=== PATIENT | male | born 1935 | race Caucasian/White ===

== ENCOUNTER → 2018-05-04 | Outpatient (CLI) | payer MEDICARE | END | disposition home or self-care (01) | LOC: OIH 15:35 | PROVIDERS: ATTEND Internal Medicine | DX: M06.842 Other specified rheumatoid arthritis, left hand (principal); M06.841 Other specified rheumatoid arthritis, right hand; J44.9 Chronic obstructive pulmonary disease, unspecified | CPT/HCPCS: 73130 ==

== ENCOUNTER → 2019-05-01 | Outpatient (CLI) | payer MEDICARE | END | disposition home or self-care (01) | LOC: RAH 11:13 | PROVIDERS: ATTEND Family Medicine | DX: M47.814 Spondylosis without myelopathy or radiculopathy, thoracic region (principal); M85.88 Other specified disorders of bone density and structure, other site; M41.84 Other forms of scoliosis, thoracic region | CPT/HCPCS: 72070 ==

== ENCOUNTER 2021-04-17 16:05 | Emergency (ER) | payer MEDICARE ==
[~2021-04-17] VITALS: Ht 177.8 cm; Wt 80.7 kg
[2021-04-17 16:07] VITALS: BP 164/88
[2021-04-17 17:36] LABS: APPEARANCE,URINE Clear (CLEAR); BILIRUBIN,URINE Negative (NEGATIVE); COLOR,URINE Yellow (YELLOW); GLUCOSE, URINE (UA) Negative (NEGATIVE); KETONES,URINE Trace mg/dL (NEGATIVE); LEUKOCYTE ESTERASE ,URINE Negative (NEGATIVE); NITRATE,URINE Negative (NEGATIVE); OCCULT BLOOD,URINE Negative (NEGATIVE); PROTEIN,URINE Negative (NEGATIVE)
[2021-04-17 18:20] VITALS: BP 148/82
== END 2021-04-17 19:15 | disposition home or self-care (01) ==
LOC: EDH 16:05
DX: S01.01XA Laceration without foreign body of scalp, initial encounter (principal); W18.39XA Other fall on same level, initial encounter; Y93.89 Activity, other specified; Y92.89 Other specified places as the place of occurrence of the external cause; Y99.8 Other external cause status
CPT/HCPCS: 12002; 36415; 70450; 71045; 72125; 81003

== ENCOUNTER → 2021-07-28 | Outpatient (CLI) | payer MEDICARE, OTHER ==
[~2021-07-28] MED LIST: REGADENOSON 0.4 MG/5 ML PF SYG IVP SCH
== END | disposition home or self-care (01) ==
LOC: OIH 08:32
PROVIDERS: ATTEND Internal Medicine Cardiovascular Disease
DX: R06.09 Other forms of dyspnea (principal); I10 Essential (primary) hypertension; E78.5 Hyperlipidemia, unspecified; E21.3 Hyperparathyroidism, unspecified; E79.0 Hyperuricemia without signs of inflammatory arthritis and tophaceous disease; R94.39 Abnormal result of other cardiovascular function study; I25.10 Atherosclerotic heart disease of native coronary artery without angina pectoris
CPT/HCPCS: 78452; 93017; 96374; A9500 ×2; J2785

== ENCOUNTER → 2022-06-25 | Outpatient (CLI) | payer MEDICARE, OTHER ==
[~2022-06-25] MED LIST changes: +GADOTERATE MEGLUMINE 10 MMOL/20 ML VIAL IV ONE; -REGADENOSON 0.4 MG/5 ML PF SYG IVP SCH
== END | disposition home or self-care (01) ==
LOC: RAH 09:15
PROVIDERS: ATTEND Otolaryngology Plastic Surgery within the Head & Neck
DX: H90.3 Sensorineural hearing loss, bilateral (principal)
CPT/HCPCS: 70553; A9575

== ENCOUNTER 2022-12-10 10:30 | Inpatient (IN) | payer MEDICARE, OTHER ==
[~2022-12-10] VITALS: Ht 167.6 cm; Wt 70.3 kg
[2022-12-10 10:56] LABS: BASOPHILS % (AUTO) 0.3 % (0.0-5.0); HEMATOCRIT 45.4 % (42-54); LYMPHOCYTES % (AUTO) 5.9 % (21.0-51.0); MEAN CORPUSCULAR HEMOGLOBIN 27.1 pg (27.0-33.0); MEAN CORPUSCULAR HGB CONC 31.1 g/dL (32.0-36.0); MEAN CORPUSCULAR VOLUME 87.3 fL (79-99); MONOCYTES % (AUTO) 6.3 % (3.0-13.0); NEUTROPHILS % (AUTO) 86.4 % (40.0-77.0); PLATELET COUNT (AUTO) 366 K/uL (130-400); RED CELL DISTRIBUTION WIDTH 15.8 % (11.0-15.5); WHITE BLOOD COUNT (AUTO) 21.8 K/uL (4.8-10.8)
[2022-12-10] MEDS ORDERED: ZOSYN 3.375GM +NS 50ML IVPB SCH (11:30)
[2022-12-10 11:31] LABS: ALBUMIN 2.6 g/dL (3.5-5.0); POTASSIUM 3.9 mmol/L (3.5-5.1); TOTAL PROTEIN, SERUM 6.1 g/dL (6.0-8.3)
[2022-12-10 11:45] LABS: APPEARANCE,URINE CLEAR (CLEAR); BILIRUBIN,URINE NEGATIVE (NEGATIVE); COLOR,URINE YELLOW (YELLOW); GLUCOSE, URINE (UA) NEGATIVE (NEGATIVE); KETONES,URINE NEGATIVE (NEGATIVE); LEUKOCYTE ESTERASE ,URINE 75 Leu/uL (NEGATIVE); NITRATE,URINE NEGATIVE (NEGATIVE); OCCULT BLOOD,URINE NEGATIVE (NEGATIVE); PH,URINE 5.5 (5.0-8.0); PROTEIN,URINE 30 mg/dL (NEGATIVE); UROBILINOGEN,URINE 3 mg/dL (0.2-1.0)
[2022-12-10 11:51] LABS: BACTERIA,URINE RARE /HPF (None Seen); SQUAMOUS EPITHELIAL CELL,UR RARE /HPF (0-2)
[2022-12-10] MEDS ORDERED: ZOSYN 3.375GM+NS 50ML 50 ML IVPB SCH (12:00)
[2022-12-10] MEDS ORDERED: IOHEXOL 350 MG/ML 100ML INFUS..BTL IV ONE (12:11)
[2022-12-10] MEDS ORDERED: 0.9%NACL 1000ML 1,000 ML IV SCH ×2 (12:30)
[2022-12-10] MEDS ORDERED: GUAIFENESIN-DM 200/20 MG 10 ML PO PRN (14:00)
[2022-12-10] MEDS ORDERED: DiphenhydrAMINE HCL 50 MG/ML VIAL IV PRN (14:00)
[2022-12-10] MEDS ORDERED: NITROGLYCERIN 0.4 MG SL TAB SL PRN (14:00)
[2022-12-10] MEDS ORDERED: ACETAMINOPHEN 325 MG TAB PO PRN (14:00)
[2022-12-10] MEDS ORDERED: MORPHINE 2 MG SYG IV PRN (14:00)
[2022-12-10] MEDS ORDERED: DEXTROSE 50%-WATER 50 ML DISP.SYRIN IV PRN (14:00)
[2022-12-10] MEDS ORDERED: ALBUTEROL 0.083% 2.5 MG/3 ML INH IH PRN (14:00)
[2022-12-10] MEDS ORDERED: POTASSIUM CHLORIDE 20MEQ/100ML 100 ML IV PRN ×2 (14:00)
[2022-12-10] MEDS ORDERED: LACTULOSE 20 GM/30 ML UDCUP PO PRN (14:00)
[2022-12-10] MEDS ORDERED: ONDANSETRON 4MG INJ IV PRN (14:00)
[2022-12-10] MEDS ORDERED: GLUCAGON 1MG KIT 1 MG ML IM PRN (14:00)
[2022-12-10] MEDS: LACTATED RINGERS 1000ML 1,000 ML IV SCH (14:47)
[2022-12-10] MEDS ORDERED: HYDROMORPHONE 0.5 MG SYG (0.5MG/0.5ML) IV PRN (15:30)
[2022-12-10 16:15] VITALS: BP 140/58
[2022-12-10] MEDS: INSULIN HUMULIN R 100 UNIT/ML 3ML SQ SCH ×2 (16:30→20:16)
[2022-12-10] MEDS ORDERED: PRED1 PO (18:53)
[2022-12-10] MEDS ORDERED: ALLO300T2 PO (18:53)
[2022-12-10] MEDS ORDERED: ATEN50TA PO (18:53)
[2022-12-10 20:00] VITALS: BP 140/70
[2022-12-10] MEDS ORDERED: HYDRALAZINE 20MG/ML VIAL IV PRN (20:00)
[2022-12-10] MEDS: ZOSYN 3.375GM+NS 50ML 50 ML IVPB SCH (20:38)
[2022-12-10] MEDS: FAMOTIDINE 20MG VIAL IV SCH (20:38)
[2022-12-11] VITALS: BP 144/74
[2022-12-11] MEDS: LACTATED RINGERS 1000ML 1,000 ML IV SCH ×3 (03:03→21:09)
[2022-12-11 04:00] VITALS: BP 142/72
[2022-12-11] MEDS: ZOSYN 3.375GM+NS 50ML 50 ML IVPB SCH ×3 (04:05→21:06)
[2022-12-11] MEDS ORDERED: ISOS30TA92 PO (04:09)
[2022-12-11] MEDS ORDERED: SIMV5TAB58 PO (04:09)
[2022-12-11] MEDS: INSULIN HUMULIN R 100 UNIT/ML 3ML SQ SCH ×4 (05:44→20:15)
[2022-12-11 06:02] LABS: BASOPHILS % (AUTO) 0.4 % (0.0-5.0); EOSINOPHILS % (AUTO) 0.6 % (0.0-8.0); HEMATOCRIT 37.6 % (42-54); MEAN CORPUSCULAR HEMOGLOBIN 27.5 pg (27.0-33.0); MEAN CORPUSCULAR HGB CONC 31.9 g/dL (32.0-36.0); NEUTROPHILS % (AUTO) 80.9 % (40.0-77.0); PLATELET COUNT (AUTO) 289 K/uL (130-400); RED BLOOD CELL COUNT(AUTO) 4.37 MIL/uL (4.50-6.20); RED CELL DISTRIBUTION WIDTH 15.7 % (11.0-15.5); WHITE BLOOD COUNT (AUTO) 14.2 K/uL (4.8-10.8)
[2022-12-11 06:30] LABS: CREATININE 0.9 mg/dL (0.5-1.5); POTASSIUM 3.3 mmol/L (3.5-5.1)
[2022-12-11] MEDS: POTASSIUM CHLORIDE 10% ELIXIR 20 MEQ/15 ML UDCUP PO PRN ×3 (06:39→14:09)
[2022-12-11 08:00] VITALS: BP 139/71
[2022-12-11] MEDS: ENOXAPARIN SODIUM 40 MG/0.4 ML SYRINGE SQ SCH ×2 (09:00→09:17)
[2022-12-11] MEDS: ALLOPURINOL 300 MG TABLET PO SCH ×2 (09:00→09:16)
[2022-12-11] MEDS: PREDNISONE 1 MG TAB PO SCH (09:15)
[2022-12-11] MEDS: ISOSORBIDE MONO 30MG SR TAB PO SCH (09:16)
[2022-12-11] MEDS: ATENOLOL 50 MG TABLET PO SCH (09:16)
[2022-12-11 12:00] VITALS: BP 145/74
[2022-12-11 16:00] VITALS: BP 133/53
[2022-12-11 20:00] VITALS: BP 122/55
[2022-12-11] MEDS: FAMOTIDINE 20MG VIAL IV SCH (21:06)
[2022-12-11] MEDS: SIMVASTATIN 10 MG TABLET PO SCH (21:09)
[2022-12-12] VITALS: BP 146/60
[2022-12-12 04:00] VITALS: BP 133/72
[2022-12-12] MEDS: ZOSYN 3.375GM+NS 50ML 50 ML IVPB SCH ×3 (04:32→23:11)
[2022-12-12 05:07] LABS: BASOPHILS % (AUTO) 0.3 % (0.0-5.0); EOSINOPHILS % (AUTO) 0.7 % (0.0-8.0); HEMATOCRIT 38.7 % (42-54); LYMPHOCYTES % (AUTO) 11.1 % (21.0-51.0); MEAN CORPUSCULAR HEMOGLOBIN 27.1 pg (27.0-33.0); MEAN CORPUSCULAR HGB CONC 31.3 g/dL (32.0-36.0); MEAN CORPUSCULAR VOLUME 86.8 fL (79-99); MONOCYTES % (AUTO) 6.4 % (3.0-13.0); NEUTROPHILS % (AUTO) 80.7 % (40.0-77.0); PLATELET COUNT (AUTO) 303 K/uL (130-400); RED BLOOD CELL COUNT(AUTO) 4.46 MIL/uL (4.50-6.20); RED CELL DISTRIBUTION WIDTH 15.6 % (11.0-15.5); WHITE BLOOD COUNT (AUTO) 17.9 K/uL (4.8-10.8)
[2022-12-12 05:27] LABS: ALBUMIN 2.1 g/dL (3.5-5.0); MAGNESIUM 1.5 mg/dL (1.80-2.40); POTASSIUM 3.7 mmol/L (3.5-5.1); TOTAL PROTEIN, SERUM 5.9 g/dL (6.0-8.3)
[2022-12-12] MEDS: LACTATED RINGERS 1000ML 1,000 ML IV SCH ×2 (06:00→16:21)
[2022-12-12] MEDS: INSULIN HUMULIN R 100 UNIT/ML 3ML SQ SCH ×4 (06:04→20:53)
[2022-12-12] MEDS: POTASSIUM CHLORIDE 10% ELIXIR 20 MEQ/15 ML UDCUP PO PRN ×2 (06:27→08:40)
[2022-12-12] MEDS: MAGNESIUM 2GM PREMIX 50ML 50 ML IV PRN (06:28)
[2022-12-12 08:00] VITALS: BP 133/71
[2022-12-12] MEDS: ALLOPURINOL 300 MG TABLET PO SCH (08:39)
[2022-12-12] MEDS: PREDNISONE 1 MG TAB PO SCH (08:40)
[2022-12-12] MEDS: ATENOLOL 50 MG TABLET PO SCH (08:40)
[2022-12-12] MEDS: ISOSORBIDE MONO 30MG SR TAB PO SCH (08:44)
[2022-12-12] MEDS: ENOXAPARIN SODIUM 40 MG/0.4 ML SYRINGE SQ SCH (08:44)
[2022-12-12 12:00] VITALS: BP 128/81
[2022-12-12 16:00] VITALS: BP 136/63
[2022-12-12 20:00] VITALS: BP 158/67
[2022-12-12] MEDS: FAMOTIDINE 20MG VIAL IV SCH (21:02)
[2022-12-12] MEDS: SIMVASTATIN 10 MG TABLET PO SCH (21:03)
[2022-12-13] VITALS: BP 160/72
[2022-12-13] MEDS: LACTATED RINGERS 1000ML 1,000 ML IV SCH (02:00)
[2022-12-13 04:00] VITALS: BP 158/72
[2022-12-13 04:30] LABS: BASOPHILS % (AUTO) 0.3 % (0.0-5.0); EOSINOPHILS % (AUTO) 1.6 % (0.0-8.0); HEMATOCRIT 33.4 % (42-54); MEAN CORPUSCULAR HEMOGLOBIN 26.5 pg (27.0-33.0); MEAN CORPUSCULAR HGB CONC 31.1 g/dL (32.0-36.0); MEAN CORPUSCULAR VOLUME 85.2 fL (79-99); MONOCYTES % (AUTO) 7.1 % (3.0-13.0); PLATELET COUNT (AUTO) 282 K/uL (130-400); RED BLOOD CELL COUNT(AUTO) 3.92 MIL/uL (4.50-6.20); RED CELL DISTRIBUTION WIDTH 15.9 % (11.0-15.5); WHITE BLOOD COUNT (AUTO) 9.9 K/uL (4.8-10.8)
[2022-12-13 04:43] LABS: ALBUMIN 1.8 g/dL (3.5-5.0); CREATININE 0.9 mg/dL (0.5-1.5); MAGNESIUM 1.6 mg/dL (1.80-2.40); POTASSIUM 3.5 mmol/L (3.5-5.1); TOTAL PROTEIN, SERUM 4.9 g/dL (6.0-8.3)
[2022-12-13] MEDS: KCL 20 MEQ ERTAB PO PRN ×2 (06:18→13:45)
[2022-12-13] MEDS: MAGNESIUM 2GM PREMIX 50ML 50 ML IV PRN (06:18)
[2022-12-13] MEDS: INSULIN HUMULIN R 100 UNIT/ML 3ML SQ SCH ×2 (06:35→11:30)
[2022-12-13] MEDS: POTASSIUM CHLORIDE 10% ELIXIR 20 MEQ/15 ML UDCUP PO PRN (07:37)
[2022-12-13] MEDS: ZOSYN 3.375GM+NS 50ML 50 ML IVPB SCH ×2 (07:37→12:05)
[2022-12-13] MEDS: ATENOLOL 50 MG TABLET PO SCH (08:16)
[2022-12-13] MEDS: ALLOPURINOL 300 MG TABLET PO SCH (08:16)
[2022-12-13] MEDS: PREDNISONE 1 MG TAB PO SCH (08:17)
[2022-12-13] MEDS: ENOXAPARIN SODIUM 40 MG/0.4 ML SYRINGE SQ SCH (08:21)
[2022-12-13 08:23] VITALS: BP 159/65
[2022-12-13] MEDS ORDERED: AMOX1TAB16 PO (08:41)
[2022-12-13] MEDS ORDERED: KCL 20 MEQ ERTAB PO ONE (09:00)
[2022-12-13] MEDS ORDERED: ISOSORBIDE MONO 30MG SR TAB PO SCH (09:00)
[2022-12-13 11:47] VITALS: BP 168/75
[2022-12-13] MEDS: KCL 20 MEQ ERTAB PO SCH ×2 (12:05→13:48)
[2022-12-13 15:54] VITALS: BP 161/78
== END 2022-12-13 17:30 | disposition home or self-care (01) | DRG 872 ==
LOC: EDH 10:30 → EDHIP 13:53 → 3BH 15:18
PROVIDERS: ADMIT Internal Medicine; ATTEND Internal Medicine
DX: A41.9 Sepsis, unspecified organism (principal); E44.0 Moderate protein-calorie malnutrition; K57.32 Diverticulitis of large intestine without perforation or abscess without bleeding; R15.9 Full incontinence of feces; E83.52 Hypercalcemia; I10 Essential (primary) hypertension; E78.00 Pure hypercholesterolemia, unspecified; M06.9 Rheumatoid arthritis, unspecified; K21.9 Gastro-esophageal reflux disease without esophagitis; Z85.028 Personal history of other malignant neoplasm of stomach; R65.20 Severe sepsis without septic shock; Z68.25 Body mass index [BMI] 25.0-25.9, adult
CPT/HCPCS: 36415; 74177; 80048; 80053; 81001; 82948; 83605; 83690; 83735; 84484; 85025; 87040; 87088; 93005; G0378; J1650; J2543; J3475; J3490; J7512; Q9967

== ENCOUNTER 2023-02-28 18:50 | Inpatient (IN) | payer MEDICARE ==
[~2023-02-28] VITALS: Ht 170.2 cm; Wt 62.2 kg
[~2023-02-28 18:50] MED LIST changes: +ALLO300T2 PO; +CHOL2000 PO; -GADOTERATE MEGLUMINE 10 MMOL/20 ML VIAL IV ONE; +ISOS20TA85 PO; +SIMV5TAB58 PO; +VIT1TAB.13 PO
[2023-02-28 20:08] LABS: ABG BASE EXCESS 3.5 mmol/L (-2.0-3.0); ABG HCO3 27.1 mmol/L (21.0-28.0); ABG OXYGEN SATURATION 94.5 % (95.0-99.0); ABG PCO2 38 mmHg (35-48)
[2023-02-28 21:12] LABS: BASOPHILS % (AUTO) 0.3 % (0.0-5.0); EOSINOPHILS % (AUTO) 0.1 % (0.0-8.0); HEMATOCRIT 33.1 % (42-54); MEAN CORPUSCULAR HGB CONC 31.4 g/dL (32.0-36.0); MEAN CORPUSCULAR VOLUME 89.2 fL (79-99); MONOCYTES % (AUTO) 5.1 % (3.0-13.0); NEUTROPHILS % (AUTO) 86.6 % (40.0-77.0); PLATELET COUNT (AUTO) 432 K/uL (130-400); RED BLOOD CELL COUNT(AUTO) 3.71 MIL/uL (4.50-6.20); WHITE BLOOD COUNT (AUTO) 25.8 K/uL (4.8-10.8)
[2023-02-28 21:23] LABS: CREATININE 0.9 mg/dL (0.5-1.5); POTASSIUM 3.7 mmol/L (3.5-5.1)
[2023-02-28 21:29] LABS: ALBUMIN 1.6 g/dL (3.5-5.0); TOTAL PROTEIN, SERUM 5.6 g/dL (6.0-8.3)
[2023-03-01] MEDS ORDERED: CEFTRIAXONE 1G VIAL IVPB ONE
[2023-03-01] MEDS ORDERED: LABETALOL 20MG SYG IV PRN (02:00)
[2023-03-01] MEDS ORDERED: ACETAMINOPHEN 650 MG SUPPOSITORY RC PRN (02:00)
[2023-03-01] MEDS ORDERED: HYDRALAZINE 20MG/ML VIAL IV PRN (02:00)
[2023-03-01] MEDS ORDERED: ALBUMIN (HUMAN) 25% 100 ML IV ONE (02:00)
[2023-03-01] MEDS ORDERED: ONDANSETRON 4MG INJ IVP PRN (02:00)
[2023-03-01] MEDS ORDERED: RENAL DOSE IV PRN (02:00)
[2023-03-01] MEDS ORDERED: CLONIDINE HCL 0.1 MG TABLET PO PRN (02:00)
[2023-03-01] MEDS ORDERED: TEMAZEPAM 15 MG CAPSULE PO PRN (02:00)
[2023-03-01] MEDS: 0.9%NACL 1000ML 1,000 ML IV SCH ×3 (02:56→21:49)
[2023-03-01 03:03] LABS: AMMONIA < 10 umol/L (11-32); CREATINE KINASE, TOTAL 15 U/L (21-232); MYOGLOBIN 34 ng/mL (10-92)
[2023-03-01 03:34] LABS: APPEARANCE,URINE CLOUDY (CLEAR); BACTERIA,URINE RARE /HPF (None Seen); BILIRUBIN,URINE NEGATIVE (NEGATIVE); COLOR,URINE YELLOW (YELLOW); GLUCOSE, URINE (UA) NEGATIVE (NEGATIVE); KETONES,URINE NEGATIVE (NEGATIVE); LEUKOCYTE ESTERASE ,URINE 500 Leu/uL (NEGATIVE); MUCUS,URINE RARE LPF (None Seen); NITRATE,URINE NEGATIVE (NEGATIVE); PH,URINE 5.5 (5.0-8.0); PROTEIN,URINE 20 mg/dL (NEGATIVE); RBC,URINE 26-50 /HPF (0-1); SQUAMOUS EPITHELIAL CELL,UR RARE /HPF (0-2); UROBILINOGEN,URINE 0.2 mg/dL (0.2-1.0); WBC,URINE TNTC /HPF (0-1); YEAST,URINE BUDDING RARE /HPF (None Seen)
[2023-03-01] MEDS ORDERED: ISOS30TA92 PO (05:12)
[2023-03-01] MEDS ORDERED: ZINC PO (05:12)
[2023-03-01] MEDS ORDERED: FAMO20TA8 PO (05:12)
[2023-03-01] MEDS ORDERED: APIX2.5T PO (05:12)
[2023-03-01] MEDS ORDERED: MVIT PO (05:12)
[2023-03-01] MEDS ORDERED: MIRT-22 PO (05:12)
[2023-03-01] MEDS ORDERED: METO-408 PO (05:12)
[2023-03-01] MEDS ORDERED: PANT40TA PO (05:12)
[2023-03-01] MEDS ORDERED: ASPI-1005 PO (05:12)
[2023-03-01] MEDS ORDERED: CHOL200059 PO (05:12)
[2023-03-01] MEDS ORDERED: ASCO100T12 PO (05:12)
[2023-03-01] MEDS ORDERED: FERR-72 PO (05:12)
[2023-03-01] MEDS: INSULIN HUMULIN R 100 UNIT/ML 3ML SQ SCH ×4 (07:30→21:00)
[2023-03-01] MEDS: CEFEPIME HCL 1 GM VIAL IV SCH ×2 (09:26→20:53)
[2023-03-01] MEDS: ENOXAPARIN SODIUM 30 MG/0.3 ML SQ SCH (09:27)
[2023-03-02 06:02] LABS: BASOPHILS % (AUTO) 0.3 % (0.0-5.0); EOSINOPHILS % (AUTO) 1.9 % (0.0-8.0); HEMATOCRIT 35.1 % (42-54); LYMPHOCYTES % (AUTO) 8.3 % (21.0-51.0); MEAN CORPUSCULAR HEMOGLOBIN 27.6 pg (27.0-33.0); MEAN CORPUSCULAR HGB CONC 31.1 g/dL (32.0-36.0); MEAN CORPUSCULAR VOLUME 88.9 fL (79-99); MONOCYTES % (AUTO) 5.9 % (3.0-13.0); NEUTROPHILS % (AUTO) 82.9 % (40.0-77.0); PLATELET COUNT (AUTO) 436 K/uL (130-400); RED BLOOD CELL COUNT(AUTO) 3.95 MIL/uL (4.50-6.20); RED CELL DISTRIBUTION WIDTH 14.8 % (11.0-15.5); WHITE BLOOD COUNT (AUTO) 16.2 K/uL (4.8-10.8)
[2023-03-02 06:23] LABS: ALANINE AMINOTRANSFERASE 37 U/L (12-78); ALBUMIN 1.8 g/dL (3.5-5.0); AMMONIA < 10 umol/L (11-32); ASPARTATE AMINOTRANSFERASE 40 U/L (10-37); CARBON DIOXIDE 28 mmol/L (21-32); CHLORIDE 105 mmol/L (101-111); CREATININE 0.7 mg/dL (0.5-1.5); GLOMERULAR FILTR. RATE CALC 89 mL/min (>90); GLUCOSE,RANDOM 80 mg/dL (70-105); PHOSPHORUS 2.6 mg/dL (2.5-4.9); POTASSIUM 3.2 mmol/L (3.5-5.1); SODIUM SERUM 141 mmol/L (136-145); THYROID STIMULATING HORMONE 1.59 uIU/mL (0.36-3.74); TOTAL PROTEIN, SERUM 5.9 g/dL (6.0-8.3); UREA NITROGEN, BLOOD 12 mg/dL (7-18)
[2023-03-02 07:10] LABS: B-TYPE NATRIURETIC PEPTIDE 1130 pg/mL (0-100)
[2023-03-02] MEDS: 0.9%NACL 1000ML 1,000 ML IV SCH ×2 (07:19→16:30)
[2023-03-02] MEDS: INSULIN HUMULIN R 100 UNIT/ML 3ML SQ SCH ×4 (07:30→21:00)
[2023-03-02] MEDS: CEFEPIME HCL 1 GM VIAL IV SCH ×2 (08:17→22:52)
[2023-03-02] MEDS: ENOXAPARIN SODIUM 30 MG/0.3 ML SQ SCH (08:17)
[2023-03-02] MEDS ORDERED: LIDOCAINE HCL 1% 20 ML VIAL ONE (10:30)
[2023-03-02] MEDS: POTASSIUM CHLORIDE 20 MEQ/100 ML BAG IV SCH (10:34)
[2023-03-02] MEDS ORDERED: PAMIDRONATE DISODIUM 90MG VIAL 90 MG in 0.9%NACL 1000ML 1,000 ML IV ONE (16:30)
[2023-03-02 16:50] VITALS: BP 159/79; PULSE 68; RESP 16
[2023-03-02 17:00] VITALS: O2SAT 96
[2023-03-02] MEDS: FUROSEMIDE 40 MG TABLET PO SCH (17:50)
[2023-03-02] MEDS ORDERED: ACET-3673 PO (17:59)
[2023-03-02] MEDS ORDERED: CEFT1FRO3 IV (17:59)
[2023-03-02] MEDS ORDERED: ZINC220T4 PO (17:59)
[2023-03-02] MEDS ORDERED: DOCU100C33 PO (17:59)
[2023-03-02 19:21] VITALS: BP 143/67; PULSE 108; RESP 20
[2023-03-02 19:32] VITALS: O2SAT 96
[2023-03-02 23:01] VITALS: BP 140/67; PULSE 110; RESP 20
[2023-03-03] VITALS (8 sets, daily range): BP systolic 123–166; BP diastolic 67–85; PULSE 98–109; RESP 16–20; O2SAT 97
[2023-03-03 05:24] LABS: BASOPHILS % (AUTO) 0.4 % (0.0-5.0); EOSINOPHILS % (AUTO) 1.2 % (0.0-8.0); HEMATOCRIT 35.3 % (42-54); LYMPHOCYTES % (AUTO) 9.2 % (21.0-51.0); MEAN CORPUSCULAR HEMOGLOBIN 27.6 pg (27.0-33.0); MEAN CORPUSCULAR HGB CONC 31.4 g/dL (32.0-36.0); MEAN CORPUSCULAR VOLUME 87.8 fL (79-99); MONOCYTES % (AUTO) 6.7 % (3.0-13.0); NEUTROPHILS % (AUTO) 81.3 % (40.0-77.0); PLATELET COUNT (AUTO) 485 K/uL (130-400); RED BLOOD CELL COUNT(AUTO) 4.02 MIL/uL (4.50-6.20); RED CELL DISTRIBUTION WIDTH 14.9 % (11.0-15.5); WHITE BLOOD COUNT (AUTO) 16.5 K/uL (4.8-10.8)
[2023-03-03 05:42] LABS: ALBUMIN 1.8 g/dL (3.5-5.0); CREATININE 0.8 mg/dL (0.5-1.5); MAGNESIUM 1.3 mg/dL (1.80-2.40); POTASSIUM 3.1 mmol/L (3.5-5.1); TOTAL PROTEIN, SERUM 5.8 g/dL (6.0-8.3)
[2023-03-03] MEDS: INSULIN HUMULIN R 100 UNIT/ML 3ML SQ SCH ×4 (06:16→21:00)
[2023-03-03] MEDS: 0.9%NACL 1000ML 1,000 ML IV SCH ×4 (06:17→21:24)
[2023-03-03] MEDS: FUROSEMIDE 40 MG TABLET PO SCH ×2 (08:26→17:12)
[2023-03-03] MEDS: ENOXAPARIN SODIUM 30 MG/0.3 ML SQ SCH (08:27)
[2023-03-03] MEDS: CEFEPIME HCL 1 GM VIAL IV SCH ×2 (08:56→21:24)
[2023-03-03] MEDS ORDERED: MAGNESIUM 4GM PREMIX 100ML 100 ML IV PRN (09:00)
[2023-03-03] MEDS ORDERED: KCL 20 MEQ ERTAB PO ONE ×2 (09:00→13:00)
[2023-03-03] MEDS: POTASSIUM CHLORIDE 20 MEQ/100 ML BAG IV SCH ×2 (09:34→23:21)
[2023-03-03] MEDS ORDERED: POTASSIUM CHLORIDE 10% ELIXIR 20 MEQ/15 ML UDCUP PO PRN (14:00)
[2023-03-04] VITALS (7 sets, daily range): BP systolic 127–139; BP diastolic 60–71; PULSE 71–99; RESP 18–20; O2SAT 97–98
[2023-03-04 05:59] LABS: BASOPHILS % (AUTO) 0.3 % (0.0-5.0); EOSINOPHILS % (AUTO) 0.5 % (0.0-8.0); HEMATOCRIT 34.3 % (42-54); LYMPHOCYTES % (AUTO) 4.5 % (21.0-51.0); MEAN CORPUSCULAR HEMOGLOBIN 27.8 pg (27.0-33.0); MEAN CORPUSCULAR HGB CONC 31.2 g/dL (32.0-36.0); MEAN CORPUSCULAR VOLUME 89.1 fL (79-99); MONOCYTES % (AUTO) 4.8 % (3.0-13.0); NEUTROPHILS % (AUTO) 88.7 % (40.0-77.0); PLATELET COUNT (AUTO) 419 K/uL (130-400); RED BLOOD CELL COUNT(AUTO) 3.85 MIL/uL (4.50-6.20); RED CELL DISTRIBUTION WIDTH 14.8 % (11.0-15.5); WHITE BLOOD COUNT (AUTO) 14.5 K/uL (4.8-10.8)
[2023-03-04] MEDS: INSULIN HUMULIN R 100 UNIT/ML 3ML SQ SCH ×4 (06:14→20:09)
[2023-03-04 06:36] LABS: ALBUMIN 1.8 g/dL (3.5-5.0); CREATININE 0.8 mg/dL (0.5-1.5); TOTAL PROTEIN, SERUM 5.7 g/dL (6.0-8.3)
[2023-03-04 06:40] LABS: POTASSIUM 2.9 mmol/L (3.5-5.1)
[2023-03-04] MEDS: POTASSIUM CHLORIDE 20 MEQ/100 ML BAG IV SCH ×2 (06:46→20:19)
[2023-03-04] MEDS: ENOXAPARIN SODIUM 30 MG/0.3 ML SQ SCH (09:29)
[2023-03-04] MEDS: FUROSEMIDE 40 MG TABLET PO SCH ×2 (09:29→17:10)
[2023-03-04] MEDS ORDERED: KCL 20 MEQ ERTAB PO ONE ×2 (09:30→13:00)
[2023-03-04] MEDS: POTASSIUM CHLORIDE 20MEQ/100ML 100 ML IV PRN ×2 (09:49→14:30)
[2023-03-04] MEDS: 0.9%NACL 1000ML 1,000 ML IV SCH ×3 (12:11→20:18)
[2023-03-04 14:52] LABS: CREATININE 0.9 mg/dL (0.5-1.5); POTASSIUM 3.3 mmol/L (3.5-5.1)
[2023-03-04] MEDS ORDERED: LIDOCAINE HCL-MPF 1% 2ML VIAL IV PRN (15:00)
[2023-03-04] MEDS: CEFEPIME HCL 2 GM VIAL IV SCH (20:09)
[2023-03-05 00:08] VITALS: BP 114/69; PULSE 93; RESP 16
[2023-03-05 03:38] VITALS: BP 128/62; PULSE 87; RESP 18
[2023-03-05 05:43] LABS: BASOPHILS % (AUTO) 0.4 % (0.0-5.0); EOSINOPHILS % (AUTO) 1.2 % (0.0-8.0); HEMATOCRIT 36.5 % (42-54); LYMPHOCYTES % (AUTO) 7.9 % (21.0-51.0); MEAN CORPUSCULAR HEMOGLOBIN 27.1 pg (27.0-33.0); MEAN CORPUSCULAR HGB CONC 31.2 g/dL (32.0-36.0); MEAN CORPUSCULAR VOLUME 86.9 fL (79-99); MONOCYTES % (AUTO) 6.3 % (3.0-13.0); NEUTROPHILS % (AUTO) 82.4 % (40.0-77.0); PLATELET COUNT (AUTO) 419 K/uL (130-400); RED CELL DISTRIBUTION WIDTH 15.1 % (11.0-15.5)
[2023-03-05 05:58] LABS: ALBUMIN 1.8 g/dL (3.5-5.0); CREATININE 0.7 mg/dL (0.5-1.5); MAGNESIUM 1.6 mg/dL (1.80-2.40); POTASSIUM 3.3 mmol/L (3.5-5.1); TOTAL PROTEIN, SERUM 5.8 g/dL (6.0-8.3)
[2023-03-05] MEDS: INSULIN HUMULIN R 100 UNIT/ML 3ML SQ SCH ×2 (06:43→11:30)
[2023-03-05] MEDS: POTASSIUM CHLORIDE 20 MEQ/100 ML BAG IV SCH (06:44)
[2023-03-05 07:50] VITALS: O2SAT 95
[2023-03-05 08:00] VITALS: BP 132/70; PULSE 77; RESP 20
[2023-03-05] MEDS: CEFEPIME HCL 2 GM VIAL IV SCH (08:53)
[2023-03-05] MEDS: ENOXAPARIN SODIUM 30 MG/0.3 ML SQ SCH (08:53)
[2023-03-05] MEDS: FUROSEMIDE 40 MG TABLET PO SCH (08:54)
[2023-03-05] MEDS: 0.9%NACL 1000ML 1,000 ML IV SCH (08:54)
[2023-03-05] MEDS ORDERED: MAGNESIUM 2GM PREMIX 50ML 50 ML IV SCH (09:00)
[2023-03-05] MEDS ORDERED: POTASSIUM CHLORIDE 20MEQ/100ML 100 ML IV SCH (09:00)
[2023-03-05] MEDS: KCL 20 MEQ ERTAB PO PRN ×2 (11:46→11:47)
[2023-03-05 12:00] VITALS: BP 160/72; PULSE 82; RESP 16
[2023-03-05] MEDS ORDERED: FURO40TA7 PO (13:50)
[2023-03-05] MEDS ORDERED: CEFEPIME IV (13:59)
== END 2023-03-05 15:40 | DRG 871 ==
LOC: EDH 18:50 → EDHIP 03-01 01:45 → OBSVTOIN 03-01 01:45 → EDHIP 03-01 05:13 → 3BH 03-02 17:10
PROVIDERS: ADMIT Internal Medicine Critical Care Medicine; ATTEND Internal Medicine Critical Care Medicine
DX: A41.9 Sepsis, unspecified organism (principal); I21.A1 Myocardial infarction type 2; J96.01 Acute respiratory failure with hypoxia; R64 Cachexia; R65.20 Severe sepsis without septic shock; R73.9 Hyperglycemia, unspecified; D50.9 Iron deficiency anemia, unspecified; R74.01 Elevation of levels of liver transaminase levels; E83.52 Hypercalcemia; E88.09 Other disorders of plasma-protein metabolism, not elsewhere classified; I11.0 Hypertensive heart disease with heart failure; I50.9 Heart failure, unspecified; H91.90 Unspecified hearing loss, unspecified ear; M10.9 Gout, unspecified; K21.9 Gastro-esophageal reflux disease without esophagitis; M06.9 Rheumatoid arthritis, unspecified; E86.0 Dehydration; F03.90 Unspecified dementia, unspecified severity, without behavioral disturbance, psychotic disturbance, mood disturbance, and anxiety; I25.2 Old myocardial infarction; Z74.01 Bed confinement status; Z85.028 Personal history of other malignant neoplasm of stomach; Z92.21 Personal history of antineoplastic chemotherapy; Z68.21 Body mass index [BMI] 21.0-21.9, adult
CPT/HCPCS: 36415; 36600; 70450; 71045; 74230; 78582; 80048; 80053; 81001; 82140; 82310; 82550; 82803; 82948; 83605; 83735; 83874; 83880; 83970; 84100; 84443; 84484; 85025; 85378; 87088; 87635; 87804; 92610; 92611; 93005; 93306; 93970; 97039; A9540; A9558; C9803; G0378; J0692; J0696; J1650; J2430; J3475; J3480; J3490; J7030; P9046